=== PATIENT | male | born 2000 | race African-American/Black ===

== ENCOUNTER 2020-11-10 20:29 | Emergency (ER) | payer SELFPAY ==
[~2020-11-10] VITALS: Ht 182.9 cm; Wt 68.0 kg
[2020-11-10 20:45] VITALS: Ht 182.9 cm; Wt 68.0 kg
[2020-11-10 22:45] VITALS: BP 139/79
== END 2020-11-11 00:24 | disposition home or self-care (01) ==
LOC: ED 20:29
DX: R30.0 Dysuria (principal); Z11.3 Encounter for screening for infections with a predominantly sexual mode of transmission
CPT/HCPCS: 87491; 87591; J0696